=== PATIENT | female | born 1985 | race Caucasian/White ===

== ENCOUNTER 2017-04-13 14:58 | Inpatient (IN) | payer BC ==
[2017-04-13] MEDS ORDERED: Carboprost Tromethamine 250 MCG/1 ML Amp IM PRN (15:28)
[2017-04-13] MEDS ORDERED: Sodium Chloride 0.9% 2.5 ML Syringe FLUSH PRN (15:28)
[2017-04-13] MEDS ORDERED: Misoprostol 200 MCG Tab PO PRN (15:28)
[2017-04-13] MEDS ORDERED: Water For Irrigation,Sterile 1,000 ML Container IRR PRN (15:28)
[2017-04-13] MEDS ORDERED: Methylergonovine 0.2 MG/1 ML Amp IM PRN (15:28)
[2017-04-13] MEDS ORDERED: Butorphanol 1 MG/ML SDV IVPUSH PRN (15:28)
[2017-04-13] MEDS ORDERED: Nalbuphine 10 MG/1 ML Vial IVPUSH PRN (15:28)
[2017-04-13] MEDS ORDERED: Sodium Chloride 0.9% 10 ML Syringe FLUSH PRN (15:28)
[2017-04-13] MEDS ORDERED: Lidocaine 1% 50 ML MDV INJECT PRN (15:28)
[2017-04-13] MEDS ORDERED: Oxytocin/0.9 % Sodium Chloride 30 UNIT/500 ML BAG IV SCH (15:30)
[2017-04-13] MEDS: Lactated Ringers 1,000 ML IV SCH ×2 (16:36→17:18)
[2017-04-13] MEDS ORDERED: ePHEDrine 50 MG/ML SDV ONE (17:08)
[2017-04-13] MEDS ORDERED: Ropivacaine 0.2% 2 MG/ML 20 ML SDV ONE (17:09)
[2017-04-13] MEDS ORDERED: Ropivacaine HCl/PF 100 ML ONE (17:09)
[2017-04-13] MEDS ORDERED: fentaNYL 100 MCG/2 ML SDV ONE (17:09)
--- NOTE | 2017-04-13 18:56 | PCM.PREANE ---
Preanesthetic Assessment - Procedure Proposed Procedure: labor epidural - Anesthesia/Transfusion/Family Hx Anesthesia History: Prior Anesthesia Without Reaction (previous epidural,upper thigh bb removal) Family History of Anesthesia Reaction: No Transfusion History: No Prior Transfusion(s) - Review of Systems General: No Symptoms Pulmonary: No Symptoms Cardiovascular: No Symptoms Gastrointestinal: No Symptoms Neurological: No Symptoms Other: Reports: None - Physical Assessment Height: 1.75 m Weight: 90.718 kg ASA Class: 2 Mental Status: Alert & Oriented x3 Dentition: Reports: Normal Dentition Thyro-Mental Finger Breadths: 3 Mouth Opening Finger Breadths: 3 ROM/Head Extension: Full Lungs: Clear to Auscultation, Normal Respiratory Effort Cardiovascular: Regular Rate, Regular Rhythm - Lab Values: Laboratory Last Values WBC 8.89 K/uL (4.0-11.0) 04/13/17 15:40 RBC 3.98 M/uL (4.30-5.90) L 04/13/17 15:40 Hgb 11.2 g/dL (12.0-16.0) L 04/13/17 15:40 Hct 33.3 % (36.0-46.0) L 04/13/17 15:40 MCV 83.7 fL (80.0-98.0) 04/13/17 15:40 MCH 28.1 pg (27.0-32.0) 04/13/17 15:40 MCHC 33.6 g/dL (31.0-37.0) 04/13/17 15:40 RDW Std Deviation 43.0 fl (28.0-62.0) 04/13/17 15:40 RDW Coeff of Tomi 14 % (11.0-15.0) 04/13/17 15:40 Plt Count 232 K/uL (150-400) 04/13/17 15:40 MPV 9.40 fL (7.40-12.00) 04/13/17 15:40 Nucleated RBC % 0.0 /100WBC 04/13/17 15:40 Nucleated RBCs # 0 K/uL 04/13/17 15:40 Blood Type A POSITIVE 04/13/17 15:40 Antibody Screen NEGATIVE 04/13/17 15:40 - Allergies Allergies/Adverse Reactions: Allergies Allergy/AdvReac Type Severity Reaction Status Date / Time No Known Allergies Allergy Verified 04/13/17 15:03 - Blood Blood Available: Yes Product(s) Available: PRBC - Acknowledgements Anesthesia Type Planned: Epidural Pt an Appropriate Candidate for the Planned Anesthesia: Yes Alternatives and Risks of Anesthesia Discussed w Pt/Guardian: Yes Pt/Guardian Understands and Agrees with Anesthesia Plan: Yes PreAnesthesia Questionnaire HEENT History: Reports: Impaired 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: , Spontaneous Endocrine/Metabolic History: Reports: Diabetes, Gestational - Infectious Disease History Infectious Disease History: Reports: Chicken Pox, Mononucleosis - Past Surgical History HEENT Surgical History: Reports: None - SUBSTANCE USE Smoking Status *Q: Never Smoker Tobacco Use Within Last Twelve Months: No Second Hand Smoke Exposure: No Recreational Drug Use History: No - CURRENT (IN HOUSE) MEDS Current Meds: Current Medications Butorphanol Tartrate (Stadol) 1 mg IVPUSH Q1H PRN PRN Reason: Pain Carboprost Tromethamine (Hemabate Ds) 250 mcg IM ASDIRECTED PRN PRN Reason: Post Hemorrhage Lactated Ringer's (Ringers, Lactated) 1,000 mls @ 150 mls/hr IV ASDIRECTED BARBRA Last Admin: 04/13/17 17:18 Dose: 999 mls/hr Oxytocin/Sodium Chloride (Oxytocin 30 Unit/500 Ml-Ns) 30 unit in 500 mls @ 500 mls/hr IV TITRATE BARBRA Lidocaine HCl (Xylocaine 1%) 50 ml INJECT .ONCE PRN PRN Reason: Laceration repair Methylergonovine Maleate (Methergine) 0.2 mg IM ASDIRECTED PRN PRN Reason: Post Hemorrhage Misoprostol (Cytotec) 200 mcg PO .ONCE PRN PRN Reason: Post Hemorrhage Nalbuphine HCl (Nubain) 10 mg IVPUSH Q1H PRN PRN Reason: Pain (severe 7-10) Sodium Chloride (Saline Flush) 10 ml FLUSH ASDIRECTED PRN PRN Reason: Keep Vein Open Sodium Chloride (Saline Flush) 2.5 ml FLUSH ASDIRECTED PRN PRN Reason: Keep Vein Open Sterile Water (Sterile Water For Irrigation) 1,000 ml IRR ASDIRECTED PRN PRN Reason: delivery Discontinued Medications Ephedrine Sulfate (Ephedrine Sulfate) Confirm Administered Dose 50 mg .ROUTE .STK-MED ONE Stop: 04/13/17 17:09 Fentanyl (Sublimaze) Confirm Administered Dose 300 mcg .ROUTE .STK-MED ONE Stop: 04/13/17 17:10 Ropivacaine (Naropin 0.2%) Confirm Administered Dose 100 mls @ as directed .ROUTE .STK-MED ONE Stop: 04/13/17 17:10 Ropivacaine (Naropin 0.2%) Confirm Administered Dose 20 ml .ROUTE .STK-MED ONE Stop: 04/13/17 17:10
--- NOTE | 2017-04-13 19:06 | PCM.PRNOTE ---
- Free Text/Narrative Note: called to see pt for placing epidural. chart reviewed, consent obtained, procedure discussed including risks of nerve pain, nerve damage, bleeding, infection and unsuccessful epidural. pt agrees to proceed. sitting up, sterile betadine prep x 3 with sterile drape. 1% lido SQ at L3. #25 Touhy needle advanced ADAM saline, os x 1, needle redirect to right and advanced approximately 5 cm. No heme, no paresthesia. catheter advanced to 10 cm. test dose 3 ml of 1.5% lidocaine with epinephrine 1:200,000. neg reaction. bolus dose of 4 ml 0.2% ropivicaine with fentanyl 100 mcg given via epidural. Pt felt relief within two contractions. Level found to be T10 bilat with left side not quite reaching T10 level. pain score 1/10. no complications noted. ropivicaine 0.2% running at 8 ml/hr with PCEA dosing 4 ml/q 20 min. educated on use of PCEA.
[2017-04-13] MEDS ORDERED: oxyCODONE 5 MG Tab PO PRN (21:08)
[2017-04-13] MEDS ORDERED: Bisacodyl 10 MG Supp RECTAL PRN (21:08)
[2017-04-13] MEDS ORDERED: Lanolin 100% Cream 7 GM Tube TOP PRN (21:08)
[2017-04-13] MEDS ORDERED: Witch Hazel Medicated Pads 40/Jar TOP PRN (21:08)
[2017-04-13] MEDS ORDERED: Docusate Sodium 100 MG Cap PO PRN (21:08)
[2017-04-13] MEDS ORDERED: Ibuprofen 400 MG Tab PO PRN (21:08)
[2017-04-13] MEDS ORDERED: Acetaminophen 500 MG Tab PO PRN ×2 (21:08)
[2017-04-13] MEDS ORDERED: Benzocaine/Menthol 20%-0.5% Spray 78 GM Cannister TOP PRN (21:08)
[2017-04-14] MEDS: Ibuprofen 800 MG Tab PO PRN ×3 (00:20→14:00)
--- NOTE | 2017-04-14 05:14 | OR ---
SURGEON: JOSE L JAMA DATE OF PROCEDURE: 04/13/2017 PREOPERATIVE DIAGNOSIS: A 31-year-old G4, P2-0-1-2 at 39 weeks and 6 days, admitted in active labor. GBS negative POSTOPERATIVE DIAGNOSIS: Status post spontaneous vaginal delivery, GBS negative. EBL:- 200 ANAESTHESIA: Epidural FINDINGS: Live female delivered at 8.19pm , 9/9 , Weight 3300g, 3VC , Placenta delivered Intact. Rt labial laceration repaired BRIEF HISTORY: She is a 31-year-old G4, P2-0-1-2 at 39 weeks and 6 days, Low risk patient of [facility], who came in complaining of contractions. The patient was examined and found to be 7/ 50/ - 2. She recieved epidural The patient progressed normally then eventually was re-examined and was found to be fully dilated. At this point, she was ruptured. The patient then had very good pushing effort. PROCEDURE: With the patient's good pushing effort, the head of baby was delivered subsequently by the shoulder, then the body. The was put on top of the abdomen of the mother and delayed cord clamping was performed. The placenta was delivered by controlled cord traction. On inspection a right labial laceration noted and was sutured. Hemostasis was noted. All instrument and pad counts were correct x2. HÉCTOR / CLYDE /[id number] MTDAlex
--- NOTE | 2017-04-14 07:07 | PCM48HPAN ---
Post Anesthesia Note - EVALUATION WITHIN 48HRS OF ANESTHETIC Vital Signs in Normal Range: Yes Patient Participated in Evaluation: Yes Respiratory Function Stable: Yes Airway Patent: Yes Cardiovascular Function Stable: Yes Hydration Status Stable: Yes Pain Control Satisfactory: Yes Nausea and Vomiting Control Satisfactory: Yes Mental Status Recovered: Yes
--- NOTE | 2017-04-14 13:36 | PCM.PNPP ---
- General Info Date of Service: 04/14/17 Admission Dx/Problem (Free Text): 31 yo P3 s/p PPD1 Subjective Update: Denies any complains is . has good pain control , minimal lochia Functional Status: Reports: Pain Controlled, Tolerating Diet, Ambulating, Urinating - Review of Systems General: Reports: No Symptoms HEENT: Reports: No Symptoms Pulmonary: Reports: No Symptoms Cardiovascular: Reports: No Symptoms Gastrointestinal: Reports: No Symptoms Genitourinary: Reports: No Symptoms Musculoskeletal: Reports: No Symptoms Skin: Reports: No Symptoms Neurological: Reports: No Symptoms Psychiatric: Reports: No Symptoms - General Info Date of Service: 04/14/17 - Patient Data Vital Signs - Most Recent: Last Vital Signs Temp 36.9 C 04/14/17 11:37 Pulse 73 04/14/17 03:26 Resp 20 04/14/17 11:37 BP 125/71 04/14/17 11:37 Pulse Ox 100 04/14/17 11:37 Weight - Most Recent: 90.718 kg Lab Results - Last 24 Hours: Laboratory Results - last 24 hr 04/13/17 04/13/17 04/14/17 Range/Units 15:40 15:40 05:44 WBC 8.89 (4.0-11.0) K/uL RBC 3.98 L (4.30-5.90) M/uL Hgb 11.2 L 10.4 L (12.0-16.0) g/dL Hct 33.3 L 31.9 L (36.0-46.0) % MCV 83.7 (80.0-98.0) fL MCH 28.1 (27.0-32.0) pg MCHC 33.6 (31.0-37.0) g/dL RDW Std Deviation 43.0 (28.0-62.0) fl RDW Coeff of Tomi 14 (11.0-15.0) % Plt Count 232 (150-400) K/uL MPV 9.40 (7.40-12.00) fL Nucleated RBC % 0.0 /100WBC Nucleated RBCs # 0 K/uL Blood Type A POSITIVE Antibody Screen NEGATIVE Med Orders - Current: Current Medications Acetaminophen (Tylenol Extra Strength) 500 mg PO Q4H PRN PRN Reason: Pain Acetaminophen (Tylenol Extra Strength) 1,000 mg PO Q4H PRN PRN Reason: Pain Last Admin: 04/14/17 05:34 Dose: 1,000 mg Benzocaine/Menthol (Dermoplast Pain Relief 20%-0.5% [place]) 78 gm TOP ASDIRECTED PRN PRN Reason: Perineal Comfort Measure Last Admin: 04/14/17 00:21 Dose: 78 gm Bisacodyl (Dulcolax) 10 mg RECTAL .ONCE PRN PRN Reason: Constipation Butorphanol Tartrate (Stadol) 1 mg IVPUSH Q1H PRN PRN Reason: Pain Carboprost Tromethamine (Hemabate Ds) 250 mcg IM ASDIRECTED PRN PRN Reason: Post Hemorrhage Docusate Sodium (Colace) 100 mg PO BID PRN PRN Reason: Constipation Emollient Ointment (Lansinoh Hpa) 0 gm TOP ASDIRECTED PRN PRN Reason: Sore Nipples Lactated Ringer's (Ringers, Lactated) 1,000 mls @ 150 mls/hr IV ASDIRECTED BARBRA Last Admin: 04/13/17 17:18 Dose: 999 mls/hr Oxytocin/Sodium Chloride (Oxytocin 30 Unit/500 Ml-Ns) 30 unit in 500 mls @ 500 mls/hr IV TITRATE ON LICENSE OF [facility] Last Admin: 04/13/17 20:21 Dose: 500 mls/hr Ibuprofen (Motrin) 400 mg PO Q4H PRN PRN Reason: Pain Ibuprofen (Motrin) 800 mg PO Q6H PRN PRN Reason: Pain Last Admin: 04/14/17 08:22 Dose: 800 mg Lidocaine HCl (Xylocaine 1%) 50 ml INJECT .ONCE PRN PRN Reason: Laceration repair Last Admin: 04/13/17 20:33 Dose: 50 ml Methylergonovine Maleate (Methergine) 0.2 mg IM ASDIRECTED PRN PRN Reason: Post Hemorrhage Misoprostol (Cytotec) 200 mcg PO .ONCE PRN PRN Reason: Post Hemorrhage Nalbuphine HCl (Nubain) 10 mg IVPUSH Q1H PRN PRN Reason: Pain (severe 7-10) Oxycodone HCl (Oxycodone) 5 mg PO Q2H PRN PRN Reason: Pain Sodium Chloride (Saline Flush) 10 ml FLUSH ASDIRECTED PRN PRN Reason: Keep Vein Open Sodium Chloride (Saline Flush) 2.5 ml FLUSH ASDIRECTED PRN PRN Reason: Keep Vein Open Sterile Water (Sterile Water For Irrigation) 1,000 ml IRR ASDIRECTED PRN PRN Reason: delivery Last Admin: 04/13/17 20:33 Dose: 1,000 ml Witch Suzy (Tucks) 1 pad TOP ASDIRECTED PRN PRN Reason: comfort care Last Admin: 04/14/17 00:22 Dose: 1 pad Discontinued Medications Ephedrine Sulfate (Ephedrine Sulfate) Confirm Administered Dose 50 mg .ROUTE .STK-MED ONE Stop: 04/13/17 17:09 Fentanyl (Sublimaze) Confirm Administered Dose 300 mcg .ROUTE .STK-MED ONE Stop: 04/13/17 17:10 Ropivacaine (Naropin 0.2%) Confirm Administered Dose 100 mls @ as directed .ROUTE .STK-MED ONE Stop: 04/13/17 17:10 Ropivacaine (Naropin 0.2%) Confirm Administered Dose 20 ml .ROUTE .STK-MED ONE Stop: 04/13/17 17:10 - Infant Interaction Infant Disposition, : [place] in Room with Family Feeding: Breastfed ; Nursed Well Support Person: - Recovery Exam Fundal Tone: Firm Fundal Level: 1 Fingerbreadths Below Umbilicus Fundal Placement: Midline Lochia Amount: Small Lochia Color: Rubra/Red Perineum Description: Intact, Minimal Bruising/Swelling Other Perinuem Description: rt labial laceration Episiotomy/Laceration: Approximated Bladder Status: Voiding Urinary Elimination: Voided - Exam General: Alert HEENT: Pupils Equal Lungs: Clear to Auscultation Cardiovascular: Regular Rate, Regular Rhythm GI/Abdominal Exam: Normal Bowel Sounds Extremities: Normal Inspection Psy/Mental Status: Alert, Normal Affect - Problem List & Annotations (1) Vaginal delivery SNOMED Code(s): 362668675 Code(s): O80 - ENCOUNTER FOR FULL-TERM UNCOMPLICATED DELIVERY Status: Acute Current Visit: Yes - Problem List Review Problem List Initiated/Reviewed/Updated: Yes - My Orders Last 24 Hours: My Active Orders 04/13/17 15:22 Patient Status [ADT] Routine 04/13/17 15:28 Notify Provider [RC] PRN Vital Signs [RC] PER UNIT ROUTINE Butorphanol [Stadol] 1 mg IVPUSH Q1H PRN Carboprost Tromethamine [Hemabate DS] 250 mcg IM ASDIRECTED PRN Lidocaine 1% [Xylocaine 1%] 50 ml INJECT .ONCE PRN Methylergonovine [Methergine] 0.2 mg IM ASDIRECTED PRN Misoprostol [Cytotec] 200 mcg PO .ONCE PRN Nalbuphine [Nubain] 10 mg IVPUSH Q1H PRN Sodium Chloride 0.9% [Saline Flush] 10 ml FLUSH ASDIRECTED PRN Sodium Chloride 0.9% [Saline Flush] 2.5 ml FLUSH ASDIRECTED PRN Water For Irrigation,Sterile [Sterile Water for Irrigation] 1,000 ml IRR ASDIRECTED PRN Peripheral IV Insertion Adult [OM.PC] Routine 04/13/17 15:30 Lactated Ringers [Ringers, Lactated] 1,000 ml IV ASDIRECTED Oxytocin/0.9 % Sodium Chloride [Oxytocin 30 Unit/500 ML-NS] 30 unit in 500 ml IV TITRATE 04/13/17 21:08 Patient Status [ADT] Routine May Shower [RC] ASDIRECTED Up ad Telma [RC] ASDIRECTED Vital Signs [RC] PER UNIT ROUTINE Acetaminophen [Tylenol Extra Strength] 1,000 mg PO Q4H PRN Acetaminophen [Tylenol Extra Strength] 500 mg PO Q4H PRN Benzocaine/Menthol [Dermoplast Pain Relief 20%-0.5% [place]] 78 gm TOP ASDIRECTED PRN Bisacodyl [Dulcolax] 10 mg RECTAL .ONCE PRN Docusate Sodium [Colace] 100 mg PO BID PRN Ibuprofen [Motrin] 400 mg PO Q4H PRN Ibuprofen [Motrin] 800 mg PO Q6H PRN Lanolin [Lansinoh HPA] See Dose Instructions TOP ASDIRECTED PRN Witch Suzy [Tucks] 1 pad TOP ASDIRECTED PRN oxyCODONE 5 mg PO Q2H PRN Assess Lochia [WOMSER] Per Unit Routine Assess Uterine Involution [WOMSER] Per Unit Routine Peripheral IV Discontinue [OM.PC] Routine Resuscitation Status Routine 04/14/17 Breakfast Regular Diet [DIET] - Assessment Assessment:: 31 yo P3 s/p , PPD 1 stable - Plan Plan:: Pain control as needed Continue breast feeding Continue vitamins Discharge home today
== END 2017-04-14 16:45 | disposition home or self-care (01) | DRG 560 ==
LOC: MW.OBCHECK 14:58 → MW.OB 15:46 → OBSVTOIN 21:08
PROVIDERS: ADMIT Obstetrics & Gynecology; ATTEND Obstetrics & Gynecology
PROC: 10E0XZZ Delivery of Products of Conception, External Approach (ICD-10-PCS; principal; 2017-04-13)
PROC: 10907ZC Drainage of Amniotic Fluid, Therapeutic from Products of Conception, Via Natural or Artificial Opening (ICD-10-PCS; 2017-04-13)
PROC: 0HQ9XZZ Repair Perineum Skin, External Approach (ICD-10-PCS; 2017-04-13)
DX: O70.0 First degree perineal laceration during delivery (principal); Z3A.39 39 weeks gestation of pregnancy; Z37.0 Single live birth
CPT/HCPCS: 36415; 51702; 59025; 59409; 85014; 85018; 85027; 86850; 86900; 86901; A9270-GY; J2590; J7120